=== PATIENT | male | born 1960 | race Caucasian/White ===

== ENCOUNTER 2019-12-22 07:49 | Emergency (ER) | payer BC, OTHER ==
[~2019-12-22] VITALS: Ht 177.8 cm; Wt 76.2 kg
[2019-12-22 07:50] VITALS: BP_SYST 119
--- NOTE | 2019-12-22 07:50 | NUR ---
Patient to ER bed 5 to gown for evaluation. Side rails up. Report given to COLE Estrada.
--- NOTE | 2019-12-22 07:57 | NUR ---
ER at bedside examining patient.
--- NOTE | 2019-12-22 08:07 | NUR ---
pt came to ER for mechanical fall. Was walking and tripped over uneven sidewalk c/o R hand pain, R 4th and 5th finger pain, and multiple abrasions. Resting in [facility], cooperative, VSS
[2019-12-22] MEDS: DIPH-TET-PERTUS Vaccine 0.5 ML VIAL (ADACEL) I.M. ONE (08:58)
[2019-12-22 09:00] VITALS: BP_SYST 119
--- NOTE | 2019-12-22 09:00 | NUR ---
Patient given written and verbal discharge instructions and verbalizes understanding. ER MD discussed with patient the results and treatment provided. Patient in stable condition. ID arm band removed. Patient educated on pain management and to follow up with PMD. Pain Scale 0. Opportunity for questions provided and answered. Medication side effect fact sheet provided.
[2019-12-22] MEDS ORDERED: BACITRACIN 1 GM OINT TP ONE (09:30)
[2019-12-22] MEDS: BACITRACIN ZINC 15 GM TOPICAL OINTMENT TP ONE (09:34)
== END 2019-12-22 09:00 | disposition home or self-care (01) ==
LOC: SED 07:49
DX: S62.316A Displaced fracture of base of fifth metacarpal bone, right hand, initial encounter for closed fracture (principal); S00.81XA Abrasion of other part of head, initial encounter; W01.0XXA Fall on same level from slipping, tripping and stumbling without subsequent striking against object, initial encounter; Y93.89 Activity, other specified; Y92.89 Other specified places as the place of occurrence of the external cause; Y99.8 Other external cause status
CPT/HCPCS: 70486-TC; 90715; 99284